=== PATIENT | female | born 1970 | race Caucasian/White ===

== ENCOUNTER 2017-08-11 11:06 | Day surgery (SDC) | payer OTHER ==
[~2017-08-11] VITALS: Ht 170.2 cm; Wt 110.8 kg
[2017-08-11 12:57] VITALS: Ht 170.2 cm; Wt 110.8 kg
[2017-08-11] MEDS ORDERED: LATUDA PO (13:00)
[2017-08-11] MEDS ORDERED: TRILEPTAL PO (13:00)
[2017-08-11] MEDS ORDERED: ATIVAN PO (13:00)
[2017-08-11] MEDS ORDERED: LIDOCAINE 2% (SDV) 5 ML INJ ONE (13:24)
[2017-08-11] MEDS ORDERED: PROPOFOL 40 ML ONE (13:24)
[2017-08-11 13:27] VITALS: BP 142/82; PULSE 62; RESP 15
--- NOTE | 2017-08-11 13:42 | OPPN ---
Date/Time of Note Date/Time of Note DATE: 08/11/17 TIME: 13:41 Operative Report Preoperative Diagnosis Abdominal pain Chronic heartburn Postoperative Diagnosis Hiatal hernia Gastroesophageal reflux disease Gastritis with erosions Operation/Procedure Performed Esophagogastroduodenoscopy and biopsy Surgeon see signature line family readiness support assistant None Anesthesia: MAC Estimated blood loss: none Transfusion Required none Specimen Gastric mucosal biopsy Grafts/Implants none Complications none KASHIF MORE MD Aug 11, 2017 13:42
[2017-08-11 13:46] VITALS: BP 98/48; RESP 20
[2017-08-11 14:05] VITALS: BP 154/94; RESP 20
--- NOTE | 2017-08-11 15:23 | GILP ---
DATE OF PROCEDURE: NAME OF PROCEDURES: Esophagogastroduodenoscopy and biopsy. SURGEON: Kashif Easton MD PREOPERATIVE DIAGNOSES: 1. Upper abdominal pain. 2. Chronic heartburn. POSTOPERATIVE DIAGNOSES: 1. Hiatal hernia. 2. Gastroesophageal reflux disease. 3. Gastritis with erosions. 4. Gastric mucosal biopsies were taken for Helicobacter pylori test. INDICATION FOR THE PROCEDURE: Ms. Brenda Garcia is a 47-year-old female patient who had upper abdomina l pain and chronic heartburn, not responding to therapy. The patient was scheduled for endoscopic e xamination for further evaluation. The procedure and possible complications were well explained to the patient. The patient understood and consented to the procedure. DESCRIPTION OF PROCEDURE: Under the influence of anesthesia, the gastroscope was carefully introduc ed into the esophagus and under direct vision, it was advanced to the stomach and through the pyloru s into the duodenal bulb and descending duodenum. FINDINGS: ESOPHAGUS: The patient had hiatal hernia and gastroesophageal reflux disease. STOMACH: She had gastritis with erosions. Gastric mucosal biopsies were taken for H. pylori test. DUODENUM: Normal. She tolerated the procedure very well and there was no complication from the procedure. At the end of the procedure, she was awake with stable vital signs and she was discharged home to the care of h er family. IMPRESSION: Please see postoperative diagnosis. PLAN: 1. Omeprazole 40 mg p.o. q.a.m. 2. Await H. pylori test report. Dictated By: KASHIF GODOY/LEONIE Conf#: [id number] DID#: [id number]
--- NOTE | 2017-08-12 08:16 | CONS ---
DATE OF ADMISSION: 08/11/2017 DATE OF CONSULTATION: PATIENT NAME: KATE GARCIA Dear Dr. De La Rosa, I thank you very much for this kind referral. HISTORY OF PRESENT ILLNESS: The patient is a 47-year-old female patient who has been referred to me for further evaluation of chronic heartburn associated with coughing and vomiting after eating. Ebonie feldman has been taking Zantac without much relief. She also complains of upper abdominal pain associated with bloating. There is no past history of peptic ulcer disease. She takes ibuprofen for various pain. Her appetite has been poor and she states that she has been losing weight. No history of gal lstones or liver disease. Patient also complains of change in the bowel habit with alternating cons tipation and predominant diarrhea. No history of inflammatory bowel disease. She denies any histor y of rectal bleeding. PAST MEDICAL HISTORY: Not hypertensive or diabetic. No heart disease or lung problem. No kidney d isease. She has got bipolar disorder. MEDICATIONS: She is on multiple medications, including Valium. PHYSICAL EXAMINATION: GENERAL: She is 5 feet 7 inches tall and she weighs 240 pounds. HEART: Normal heart sounds. LUNGS: Clear. ABDOMEN: Soft. No masses. Normal bowel sounds. NEUROLOGIC: Normal neurological exam. IMPRESSION: 1. Chronic heartburn associated with vomiting and regurgitation after eating. 2. The patient has been taking Zantac without relief. 3. The patient also complains of upper abdominal pain and bloating. 4. The patient takes ibuprofen off and on. 5. She complains of loss of appetite and weight loss. 6. Change in the bowel habit with constipation and predominant diarrhea. 7. Bipolar disorder, and the patient is on multiple psychotherapeutic medications. 8. Obesity. PLAN: 1. Upper endoscopy to rule out reflux esophagitis and peptic ulcer disease. 2. Colonoscopy at a later date for further evaluation of change in the bowel habit with alternating constipation and predominant diarrhea. 3. Because of the obesity with a short thick neck, the patient will need monitored anesthesia care for the procedures. Procedures and possible complications are well explained to the patient. She understands and consen ts to the procedures. I thank you once again. With warmest personal regards, Dictated By: KASHIF GODOY/LEONIE Conf#: [id number] DID#: [id number] CC: KRISTEN DE LA ROSA MD;*[facility]*
== END 2017-08-11 18:43 | disposition home or self-care (01) ==
LOC: GIL 11:06
PROVIDERS: ATTEND Internal Medicine Gastroenterology
DX: K44.9 Diaphragmatic hernia without obstruction or gangrene (principal); K21.9 Gastro-esophageal reflux disease without esophagitis; K29.60 Other gastritis without bleeding; E66.01 Morbid (severe) obesity due to excess calories; Z68.38 Body mass index [BMI] 38.0-38.9, adult
CPT/HCPCS: 43239; 87081; Z7610

== ENCOUNTER 2017-10-19 07:34 | Day surgery (SDC) | END 2017-10-19 11:01 | disposition home or self-care (01) ==